=== PATIENT | female | born 1985 | race Caucasian/White ===

== ENCOUNTER 2019-09-09 09:34 | Inpatient (IN) | payer BC ==
[~2019-09-09] VITALS: Ht 165.1 cm; Wt 102.6 kg
--- NOTE | ~2019-09-09 | CON ---
[address] [address] CONSULTATION Name: LESLEE TORRES Room: [address] IN M.R.#: [id number] Admission: 09/09/19 Attend Phys: Mj Brandon Discharge: Date of : 83 Report #: [id number] THIS REPORT FOR: //name// cc: MILAD DASILVA NP, KATHERINE J. NP ~ THIS REPORT FOR: //name// CC: MILAD Burleson DATE OF SERVICE: 09/10/2019 REASON FOR CONSULT: Epigastric pain and nausea. HISTORY OF PRESENT ILLNESS: This is a 34-year-old female with history of gallbladder disease in the past, who had a cholecystectomy 5 years ago. The patient presented with symptoms of nausea, vomiting, and epigastric pain. The patient reports that the pain was radiating to the back. She has been given Dilaudid p.r.n. for pain and was placed on 100 mL of IV fluid per hour. Her lipase was elevated in 30,000 level and her transaminases were high as well. She had an MRCP, which was not a good study, but did not find any filling defect or dilated common bile duct in that study. PAST MEDICAL HISTORY: Significant for history of gallbladder disease, status post cholecystectomy 5 years ago. She is prediabetic and takes metformin at home. The patient also is known to have elevated LFTs due to fatty liver. ALLERGIES: SIGNIFICANT TO MORPHINE. MEDICATIONS: Please refer to MAR. SOCIAL HISTORY: The patient lives at home, has children. She occasionally may have alcoholic beverage. She denies tobacco use. FAMILY HISTORY: Significant gallbladder disease in the mother. PHYSICAL EXAMINATION: VITAL SIGNS: Reveals blood pressure 124/77, respiration 18, pulse 107, temperature 98.3. LUNGS: Clear. CARDIOVASCULAR: Regular. ABDOMEN: Soft, mildly tender to palpation in the epigastric region. Bowel sounds are positive. NEUROLOGIC: The patient is alert and oriented x 3. LABORATORY DATA: Reveal sodium of 140, potassium 3.8, BUN is 10, [place] [address] CONSULTATION Name: LESLEE TORRES Room: [address] IN [facility]#: [id number] Admission: 09/09/19 Attend Phys: Mj Brandon Discharge: Date of : 83 Report #: [id number] 1.0, AST is 365, ALT 649 with alkaline phosphatase of 204. Total bilirubin is 1.6, down from 3.2. Lipase is over 30,000. WBC is 11, hemoglobin is 13.9, and platelet of 303. IMAGING: As discussed above. ASSESSMENT AND PLAN: The patient with acute pancreatitis, most probably passed bile duct stone as LFTs are elevated and initial bilirubin was 3.2. We will increase her IV hydration to 250 mL an hour and check her labs tomorrow. I will keep her on ice chips only today, but tomorrow we will consider letting her have clear liquids if her pain and nausea is better. By: [id number] Ramos MD /nt
[~2019-09-09 09:34] MED LIST: METFORMIN HCL500 MG PO; NORCO 5-325 TA1 EACH PO
[2019-09-09 09:42] VITALS: BP 133/71
[2019-09-09 10:19] LABS: HEMATOCRIT 40.5 % (37.0-47.0); HEMOGLOBIN 13.9 gm/dL (12.0-15.0); MCH 28.6 pg (26.0-34.0); MCHC 34.3 g/dL (28.0-37.0); MCV 83.4 fL (80.0-100.0); MPV 8.6 fl. (7.2-11.1); NUCLEATED RBCS 0 /100WBC; PLATELET COUNT* 303 thou/uL (150-400); RBC 4.85 mil/uL (4.20-5.00); RDW-CV 14.5 % (10.5-14.5)
[2019-09-09 10:27] LABS: CALCIUM 9.3 mg/dL (8.5-10.1); CREATININE 1.1 mg/dL (0.6-1.3); POTASSIUM 3.9 mmol/L (3.5-5.1)
[2019-09-09 10:32] LABS: TOTAL BILIRUBIN 3.2 mg/dL (<0.1-1.0); TOTAL PROTEIN 7.8 g/dL (6.4-8.2)
[2019-09-09 11:13] LABS: ABSOLUTE BASOPHILS 0.1 thou/uL (0.0-0.2); ABSOLUTE LYMPHOCYTES 1.2 thou/uL (0.8-5.3); ABSOLUTE MONOCYTES 0.7 thou/uL (0.0-1.2); METAMYELOCYTES 1 %
[2019-09-09 11:14] LABS: PLATELET ESTIMATE ADEQUATE
[2019-09-09 11:39] LABS: URINE BILIRUBIN NEGATIVE (Negative); URINE BLOOD NEGATIVE (Negative); URINE CLARITY CLEAR; URINE COLOR YELLOW; URINE GLUCOSE-RANDOM NEGATIVE (Negative); URINE KETONES TRACE (Negative); URINE LEUKOCYTES-REFLEX NEGATIVE (Negative); URINE NITRITE-REFLEX NEGATIVE (Negative); URINE PROTEIN NEGATIVE (Negative); URINE SPECIFIC GRAVITY <= 1.005 (1.005-1.030); URINE UROBILINOGEN 0.2 E.U./dl (0.2-1.0)
--- NOTE | 2019-09-09 12:38 | NUR ---
PT UP TO BATHROOM AND REQUESTING MORE PAIN MEDICATION, DR. MEJIA INFORMED
[2019-09-09 15:06] VITALS: BP 118/86
[2019-09-09 15:30] VITALS: BP 129/85
[2019-09-09] MEDS ORDERED: DRIZALMA SPRINK60 MG PO (15:50)
--- NOTE | 2019-09-09 15:58 | NUR ---
RECEIEVED REPORT FROM KASEY TORRES IN ER OF EXPECTED ADMISSION AT 1425- DX: PANCREATITIS AND HEPATITIS NON-ALCOHOLIC- PT ARRIVED TO UNIT ROOM 225 VIA CART, SBA TO BED- MS STATUS IN PLACE ORDERED- PT A&O X4- CONT OF BOWEL AND BLADDER- UP AD-SHANNON, STEADY GAIT NOTED-LCTA, RESP EVEN AND UN-LABORED- VS 98.5 18 129/85 98 92% ON RA-ABD SOFT/ROUND/TENDER, BS X4 QUADS HYPOACTIVE- IV NOTED TO LEFT AC INTACT, IVF INFUSSING PRESCRIBED- PT DENIES ANY OPEN AREAS OR SOARS- GLASSESS NOTED IN PLACE AT TIME OF ADMISSION- NAUSEA MEDICATION NOTED TO BE GIVEN IN ER PRIOR TO TRANSFER, PT REPORTS MEDICATIONS TO BE EFFECTIVE- PAIN MEDICATIONS NOTED TO BE GIVEN WELL PRIOR TO ADMISSION- PT RATES PAIN 5/10 TO RUQ- CALL LIGHT AND PERSONAL BELONGINGS WITH IN REACH- HOURLY ROUNDS IN PLACE R/T SAFETY/NEEDS- ALL NEEDS MET AT THIS TIME-WCTM
[2019-09-09 20:00] VITALS: BP 122/75
--- NOTE | 2019-09-09 23:01 | NUR ---
PT UNCOMFORTABLE AT START OF SHIFT STATING PAIN MED WAS NOT WORKING. MEDS GIVEN ORDERED AND YOUCALL MESSAGES SENT TO DR Castaneda WITH MED ORDERS RECEIVED. IV PAIN AND NAUSEA MED GIVEN AT THIS TIME AND PT POSITIONED IN BED FOR COMFORT WITH COOL CLOTH TO FOREHEAD AND STATES SHE IS GOING TO TRY TO REST, STATES IMMEDIATE RELIEF OF PAIN TO TOLERABLE LEVEL WHEN IV DILAUDID GIVEN. EDUCATED PT IN NPO STATUS AND PLAN OF CARE AND PT VERBALIZES UNDERSTANDING. WILL CONTINUE TO MONITOR AND PROVIDE CARES NEEDED. CALL LITE IN EASY REACH. PT AOX4.
[2019-09-10] VITALS: BP 128/77
[2019-09-10 04:00] VITALS: BP 132/79
[2019-09-10 04:43] LABS: ALBUMIN 3.4 g/dL (3.4-5.0); ALKALINE PHOSPHATASE 204 U/L (46-116); ANION GAP 9 mmol/L (7-16); BUN 10 mg/dL (7-18); CHLORIDE 106 mmol/L (98-107); CHOLESTEROL 178 mg/dL (<200); CO2 25 mmol/L (21-32); GLUCOSE 121 mg/dL (70-99); HDL CHOLESTEROL 57 mg/dL (>40); LDL CHOLESTEROL 108 mg/dL (<100); MAGNESIUM 1.9 mg/dL (1.8-2.4); POTASSIUM 3.8 mmol/L (3.5-5.1); SGOT 365 U/L (15-37); SGPT 649 U/L (30-65); SODIUM 140 mmol/L (136-145); TC:HDL 3.1 Ratio (Not establshd); TOTAL BILIRUBIN 1.6 mg/dL (<0.1-1.0); TOTAL PROTEIN 6.9 g/dL (6.4-8.2); TRIGLYCERIDE 68 mg/dL (<150); VLDL 14 mg/dL (<40)
[2019-09-10 04:55] LABS: CALCIUM 8.4 mg/dL (8.5-10.1)
[2019-09-10 04:57] LABS: SERUM ASSESSMENT CLEAR
--- NOTE | 2019-09-10 05:17 | NUR ---
AFTER REPEATED PAGES TO DR, ADEQUATE PAIN CONTROL RECEIVED BY IV DILAUDID APPROX EVERY 2 HOURS PRN. COMPAZINE GIVEN FOR NAUSEA WITH GOOD RESULT. LAC IVF INFUSING PER PUMP. NPO WITH MOUTH SWABS FOR COMFORT. REQUESTING HOME MED DULOXETINE AND WHEN RECEIVED PT UNABLE TO TAKE IT DUE TO EXTREME NAUSEA WITH VOMITING. AOX4, UP AD SHANNON IN ROOM. AM LABS. GI CONSULT FOR TODAY. ABLE TO USE CALL LITE AND MAKE NEEDS KNOWN. MED SURG STATUS. CALL LITE IN EASY REACH.
[2019-09-10 07:57] LABS: AMP/METHAMP Negative (Negative); BARBITURATES Negative (Negative); BENZODIAZEPINES Negative (Negative); COCAINE Negative (Negative); METHADONE Negative (Negative); OPIATES Negative (Negative); PCP Negative (Negative); THC Negative (Negative)
[2019-09-10 08:06] VITALS: BP 124/77
--- NOTE | 2019-09-10 09:57 | NUR ---
ASSUMED CARE OF PT THIS AM AROUND 714- MS STATUS IN PLACE ORDERED- UPON ASSESSMENT PT NOTED TO BE RESTING BED- PT A&O X4- CONT OF BOWEL AND BLADDER- UP AD-SHANNON IN ROOM, STEADY GAIT NOTED- LCTA, RESP EVEN AND UN-LABORED- VSS, O2 SAT 94% ON RA- ABD SOFT/ROUND/TENDER, BS X4 QUADS- NO C/O NAUSEA NOTED THIS AM- CURRENLTY NPO INDICATED, ICE CHIPS ONLY- IV NOTED TO LEFT AC INTACT, IVF INFUSSING PRECRIBED- PT CURRENTLY OFF UNTI FOR ORDERED MRCP THIS AM- PRN DILAUDID GIVEN THIS AM PER PT REQUEST R/T 10/20 RUQ PAIN- CALL LIGHT AND PERSONAL BELONGINGS WITH IN REACH- PT MAKES NEEDS KNOWN- ALL NEEDS MET AT THIS TIME-ELIANE
--- NOTE | 2019-09-10 14:15 | NUR ---
Pt is A&O. Resides at home with her and kids. Independent. No DME. No hx of HH or SNF. GI following. Goal is home at ma.
[2019-09-10 19:57] VITALS: BP 135/89
[2019-09-11 00:08] VITALS: BP 125/65
[2019-09-11 02:07] LABS: GLYCOHEMOGLOBIN (HGB A1C) 5.9 % (4.8-5.6)
--- NOTE | 2019-09-11 05:22 | NUR ---
PT IS ABLE TO COMMUNICATE HER NEEDS TO STAFF EFFECTIVELY. CURRENT PAIN MEDICATION REGIMEN HAS BEEN ADEQUATE FOR CONTROLLING HER PAIN UP TO THIS TIME. CLEAR LIQUID DIET MAINTAINED. GI FOLLOWING.
[2019-09-11 08:00] VITALS: BP 120/76
--- NOTE | 2019-09-11 11:39 | NUR ---
Per , anticipate dc to home tomorrow.
[2019-09-11 14:32] LABS: ALBUMIN 2.6 g/dL (3.4-5.0); CALCIUM 7.3 mg/dL (8.5-10.1); CREATININE 0.7 mg/dL (0.6-1.3); POTASSIUM 3.3 mmol/L (3.5-5.1); TOTAL BILIRUBIN 0.9 mg/dL (<0.1-1.0)
[2019-09-11 16:00] VITALS: BP 137/92
--- NOTE | 2019-09-11 16:55 | NUR ---
PT UP IN ROOM WITH STEADY GAIT. IVF INFUSING. PT TOLERATING CLEAR LIQUID DIET. PAIN WELL CONTROLLED WITH PO MEDS
[2019-09-11 20:00] VITALS: BP 151/97
[2019-09-11 23:51] VITALS: BP 147/73
[2019-09-12 06:07] LABS: IgG 699 mg/dL (586-1602)
--- NOTE | 2019-09-12 06:15 | NUR ---
PATIENT SLEPT MOST OF THE NIGHT. IV FLUIDS CONTINUE TO INFUSE AT 125 ML/HR. PATIENT WAS GIVEN PAIN MEDS TWICE THIS SHIFT. PATIENT IS POSSIBLY GOING HOME TODAY. WILL CONTINUE TO MONITOR.
[2019-09-12 07:58] VITALS: BP 123/86
--- NOTE | 2019-09-12 10:19 | NUR ---
ASSUMED PT CARE REPORT RECEIVED FROM NURSE. PT IS AOX4. ON RA. O2 SATURATION 95% ON RA. ACCUCHECK. NO COMPLAINT. ON PAIN ASSESSMENT PT STATES THAT SHE HAS ABDOMINAL DISCOMFORT BUT COULD TOLORATE WITHOUT PAIN MEDICINE. IV LFUID INFUSING ORDERED. CARBOHYDRATE CONTROL DIET ORDERED FOR BREAKFAST. PT TOLORATED WELL. DENIES N/V. POTASSIUM REPLACEMENT GIVEN TO PATIENT. WILL CONTINUE TO MONITOR
[2019-09-12 11:20] VITALS: BP 123/86
--- NOTE | 2019-09-12 12:07 | NUR ---
IV LINE REMOVED. PT TOLORATED BREAKFAST WELL
[2019-09-12 12:36] VITALS: BP 126/93
[2019-09-12] MEDS ORDERED: HYDROCODON-ACE1 EAC7 PO (13:04)
== END 2019-09-12 15:05 | disposition home or self-care (01) | DRG 441 ==
LOC: M.ERS 09:34 → M.TBA-ER 12:42 → M.2W 12:42
PROVIDERS: Personal Emergency Response Attendant; ADMIT Internal Medicine
DX: B17.9 Acute viral hepatitis, unspecified (principal); K85.90 Acute pancreatitis without necrosis or infection, unspecified; R65.10 Systemic inflammatory response syndrome (SIRS) of non-infectious origin without acute organ dysfunction; G43.909 Migraine, unspecified, not intractable, without status migrainosus; R73.9 Hyperglycemia, unspecified; Z90.49 Acquired absence of other specified parts of digestive tract; Z88.6 Allergy status to analgesic agent